=== PATIENT | female | born 1960 | race Caucasian/White ===

== ENCOUNTER 2019-08-22 15:32 | Outpatient (CLI) | payer OTHER, SELFPAY ==
--- NOTE | ~2019-08-22 | MM_ITS ---
EXAMINATION: MM screening lizeth BI w mason HISTORY: Screening mammogram TECHNIQUE: Craniocaudal and mediolateral oblique 3-D tomosynthesis images were obtained and synthetic 2-D images were generated. CAD analysis was submitted and interpreted. COMPARISON: 06/13/2018, 06/09/2017, 05/13/2016 bilateral digital screening mammogram examinations BREAST PARENCHYMAL COMPOSITION: The breasts are almost entirely fatty. FINDINGS: There is no evidence of suspicious mass, calcification, or architectural distortion to sugg est malignancy in either breast. There has been no suspicious interval change. IMPRESSION: 1. No mammographic evidence of malignancy. 2. Recommend routine screening mammography in one year. BI-RADS Category 1: Negative Reviewed, dictated and finalized at location A. ACT LENS EDGE BUFFER
== END 2019-08-22 15:33 | disposition home or self-care (01) ==
LOC: ANHIMG 15:40
PROVIDERS: PCP Family Medicine; Visit Provider Family Medicine
DX: Z12.31 Encounter for screening mammogram for malignant neoplasm of breast (principal)
CPT/HCPCS: 77063; 77067

== ENCOUNTER 2020-05-25 10:38 | Outpatient (CLI) | payer OTHER, SELFPAY ==
--- NOTE | ~2020-05-25 | US_ITS ---
EXAMINATION: US carotid duplex BI DATE: 05/25/2020 12:01 INDICATION: Hypertension. TECHNIQUE: Grayscale, color Doppler, and pulsed Doppler images of the cervical carotid arteries were obtained. The degree of vessel stenosis is placed in one of the following categories: normal, <50%, 5 0-69%, >=70% but less than near-occlusion, near-occlusion, or total occlusion. Note that percent sten osis relative to normal distal artery lumen diameter is indirectly measured from velocity measurement s as described by Fernando, et al. Radiology 2003; [id number]:340-346. COMPARISON: None. FINDINGS: RIGHT: The right common carotid artery (CCA) peak systolic velocity (PSV) is 104 cm/s. The right internal ca rotid artery (ICA) PSV is 61 cm/s. The right ICA end-diastolic velocity (EDV) is 30 cm/s. The right I CA/CCA PSV ratio is 0.6. Grayscale and color Doppler images yield an estimate of <50% diameter reduct ion from plaque in the ICA. There is antegrade flow in the right vertebral artery. LEFT: The left CCA PSV is 75 cm/s. The left ICA PSV is 88 cm/s. The left ICA EDV is 33 cm/s. The left ICA/C CA PSV ratio is 1.2. Grayscale and color Doppler images yield an estimate of <50% diameter reduction from plaque in the ICA. There is antegrade flow in the left vertebral artery. IMPRESSION: 1. <50% stenosis in the right internal carotid artery. 2. <50% stenosis in the left internal carotid artery. Reviewed, dictated and finalized at location A. R AND FIRE TECHNICIAN
== END 2020-05-25 10:39 | disposition home or self-care (01) ==
PROVIDERS: PCP Family Medicine; Visit Provider Nurse Practitioner Family
DX: R42 Dizziness and giddiness (principal); I10 Essential (primary) hypertension; I65.23 Occlusion and stenosis of bilateral carotid arteries
CPT/HCPCS: 93880

== ENCOUNTER 2021-03-26 15:11 | Outpatient (CLI) | payer OTHER, SELFPAY ==
--- NOTE | ~2021-03-26 | MM_ITS ---
EXAMINATION: MM screening lizeth BI w mason HISTORY: Screening TECHNIQUE: Craniocaudal and mediolateral oblique 3-D tomosynthesis images were obtained and synthetic 2-D images were generated. CAD analysis was submitted and interpreted. COMPARISON: Comparison to multiple prior studies sequentially, with oldest reviewed study dated 03/27. BREAST PARENCHYMAL COMPOSITION: There are scattered areas of fibroglandular density. FINDINGS: There is no evidence of suspicious mass, calcification, or architectural distortion to sugg est malignancy in either breast. There has been no suspicious interval change. IMPRESSION: 1. No mammographic evidence of malignancy. 2. Recommend routine screening mammography in one year. BI-RADS Category 1: Negative Reviewed, dictated and finalized at location A.
== END 2021-03-26 15:12 | disposition home or self-care (01) ==
LOC: ANHIMG 15:14
PROVIDERS: PCP Family Medicine; Visit Provider Family Medicine
DX: Z12.31 Encounter for screening mammogram for malignant neoplasm of breast (principal)
CPT/HCPCS: 77063; 77067

== ENCOUNTER 2022-07-27 07:58 | Outpatient (CLI) | payer OTHER, SELFPAY ==
--- NOTE | ~2022-07-27 | MM_ITS ---
EXAMINATION: MM screening lizeth BI w mason HISTORY: Screening mammogram TECHNIQUE: Craniocaudal and mediolateral oblique 3-D tomosynthesis images were obtained and synthetic 2-D images were generated. CAD analysis was submitted and interpreted. COMPARISON: 03/26/2021, 08/22/2019, 06/13/2018 bilateral screening mammogram examinations BREAST PARENCHYMAL COMPOSITION: The breasts are almost entirely fatty. FINDINGS: There is no evidence of suspicious mass, calcification, or architectural distortion to sugg est malignancy in either breast. There has been no suspicious interval change. IMPRESSION: 1. No mammographic evidence of malignancy. 2. Recommend routine screening mammography in one year. BI-RADS Category 1: Negative Reviewed, dictated and finalized at location B. NOTCHER
== END 2022-07-27 07:59 | disposition home or self-care (01) ==
LOC: ANHIMG 08:01
PROVIDERS: PCP Family Medicine; Visit Provider Family Medicine
DX: Z12.31 Encounter for screening mammogram for malignant neoplasm of breast (principal)
CPT/HCPCS: 77063; 77067

== ENCOUNTER 2023-10-17 08:43 | Outpatient (CLI) | payer OTHER, SELFPAY ==
--- NOTE | ~2023-10-17 | MM_ITS ---
EXAMINATION: MM screening lizeth BI w mason HISTORY: Screening mammogram TECHNIQUE: Craniocaudal and mediolateral oblique 3-D tomosynthesis images were obtained and synthetic 2-D images were generated. CAD analysis was submitted and interpreted. COMPARISON: 07/27/2022, 03/26/2021 bilateral screening mammogram examinations BREAST PARENCHYMAL COMPOSITION: The breasts are almost entirely fatty. FINDINGS: There is a 3.1 x 3.4 mm mass anteriorly in the lower central left breast at 6:00. Diagnosti c left mammogram and left breast ultrasound examination are recommended. Otherwise there is no evidence of suspicious mass, calcification, or architectural distortion to sugg est malignancy in either breast. There has been no other suspicious interval change. IMPRESSION: 1. Suspicious dense 3 x 3.4 mm mass in the anterior left breast, 6:00 2. Diagnostic left mammogram and targeted left breast ultrasound examination are recommended. BI-RADS Category 0: Incomplete: Needs additional imaging evaluation. Reviewed, dictated and finalized at location A. IMPRESSION: 1. Suspicious dense 3 x 3.4 mm mass in the anterior left breast, 6:00 2. Diagnostic left mammogram and targeted left breast ultrasound examination ar e recommended. BI-RADS Category 0: Incomplete: Needs additional imaging evaluation.
== END 2023-10-17 08:44 | disposition home or self-care (01) ==
PROVIDERS: PCP Family Medicine; Visit Provider Physician Assistant
DX: Z12.31 Encounter for screening mammogram for malignant neoplasm of breast (principal); R92.8 Other abnormal and inconclusive findings on diagnostic imaging of breast
CPT/HCPCS: 77063; 77067

== ENCOUNTER 2023-11-13 10:42 | Outpatient (CLI) | payer OTHER, SELFPAY ==
--- NOTE | ~2023-11-13 | MMUS_ITS ---
EXAMINATION: MM diagnostic lizeth LT w mason, US breast LT limited HISTORY: Suspicious 3 x 3.4 mm mass in anterior left breast at 6:00 noted on October 17, 2023 screening mammogram TECHNIQUE: Additional 3-D tomosynthesis images of the left breast were performed and synthetic 2-D im ages were generated. CAD analysis was submitted and interpreted. High resolution left subareolar miguel st ultrasound was performed. COMPARISON: Serial images dating back to 08/22/2019 FINDINGS: MAMMOGRAPHIC FINDINGS: An approximately 2.5 x 1.9 mm circumscribed opacity is noted in the inferior subareolar area of the l eft breast anteriorly. ULTRASOUND: In the 6:00 subareolar area there is an approximately 1.7 x 3.2 x 2.1 mm oval hypoechoic area without internal vascularity or posterior shadowing. Six-month follow-up diagnostic left mammogram and ultrasound examination are recommended. IMPRESSION: 1. Probable inferior subareolar benign finding 2. Six-month diagnostic left mammogram and breast ultrasound follow-up are recommended BI-RADS category 3, probably benign findings. Reviewed, dictated and finalized at location B. IMPRESSION: 1. Probable inferior subareolar benign finding 2. Six-month diagnostic left mammogram and breast ultrasound follow-up are ben mmended BI-RADS category 3, probably benign findings.
== END 2023-11-13 10:43 | disposition home or self-care (01) ==
LOC: ANHIMG 10:46
PROVIDERS: PCP Family Medicine; Visit Provider Physician Assistant
DX: R92.8 Other abnormal and inconclusive findings on diagnostic imaging of breast (principal)
CPT/HCPCS: 76642; 77061; 77065; G0279

== ENCOUNTER 2023-11-21 14:31 | Outpatient (CLI) | payer OTHER, SELFPAY ==
--- NOTE | ~2023-11-21 | CT_ITS ---
EXAMINATION: CT lung screening DATE: 11/21/2023 14:49 INDICATION: Z87.891 - Personal history of nicotine dependence TECHNIQUE: Computed tomography (CT) of the chest was performed without intravenous contrast. Addition al 3D reconstructions utilizing coronal maximum intensity projection (MIP) were performed. Automated exposure control and iterative reconstruction technique were employed. The dose-length product was 12 2.99 mGy-cm. COMPARISON: 04/06/2018 FINDINGS: Mild to moderate apical and paraseptal predominant emphysema. Decrease in size of a small region of c onsolidation likely chronic atelectasis/scarring at the medial right middle lobe. No significant keyes ge in regions of tree-in-bud opacities in the right middle lobe and anterior segment of the right upp er lobe. Interval improvement in now minimal tree-in-bud opacities in the right lower lobe. Slight in crease in size of a previously 5 x 4 mm, currently 8 x 6 mm left lower lobe nodule. A couple small ca lcified pulmonary nodules at the left and right apices of lungs consistent with old granulomatous dis ease. No new or enlarging pulmonary nodules, pneumonia, pulmonary edema or pleural effusion. Heart si ze is normal. No pericardial effusion. Thoracic aorta is normal in caliber. No pathologically enlarge d thoracic lymphadenopathy. Visualized upper abdomen is unremarkable. Again seen is a mild thoracic k yphosis with mild to moderate spondylosis and chronic minimal to mild anterior wedging of multiple mi d and lower thoracic vertebral bodies. IMPRESSION: 1. Lung-RADS category 4A: (Suspicious, 5-15% chance of malignancy) 3 month follow-up with low-dose est CT. Given the minimal growth relative to the nearly 6 year interval between studies would conside r increasing the CT follow-up interval to 6 months. Reviewed, dictated and finalized at location B. IMPRESSION: 1. Lung-RADS category 4A: (Suspicious, 5-15% chance of malignancy) 3 month foll ow-up with low-dose chest CT. Given the minimal growth relative to the nearly 6 year interval between studies would consider increasing the CT follow-up inter nevaeh to 6 months.
== END 2023-11-21 14:32 | disposition home or self-care (01) ==
PROVIDERS: PCP Family Medicine; Visit Provider Family Medicine
DX: Z12.2 Encounter for screening for malignant neoplasm of respiratory organs (principal); Z87.891 Personal history of nicotine dependence
CPT/HCPCS: 71271

== ENCOUNTER 2024-02-29 12:24 | Outpatient (CLI) | payer OTHER, SELFPAY ==
--- NOTE | ~2024-02-29 | CT_ITS ---
EXAMINATION: CT diagnostic chest wo con DATE: 02/29/2024 12:54 INDICATION: pulmonary nodule TECHNIQUE: Computed tomography (CT) of the chest was performed without intravenous contrast. Addition al 3D reconstructions utilizing coronal maximum intensity projection (MIP) were performed. Automated exposure control and iterative reconstruction technique were employed. The dose-length product was 81 .13 mGy-cm. COMPARISON: 11/21/2023 and 04/06/2018 FINDINGS: Mild to moderate upper paraseptal predominant emphysema in the upper lungs. No significant interval c hange in a 9 x 6 mm left lower lobe nodule. There are multiple additional tiny centrilobular nodules clustered in the right upper lobe and to lesser degree in the right middle the lower lobes with tree- in-bud pattern consistent with endobronchial spread of disease and likely infectious in etiology. Per ipheral atelectasis at the anteromedial margin of the right middle lobe. No pulmonary edema or pleura l effusion. Heart size is normal. Atherosclerotic coronary artery calcification. No pericardial effus ion. Thoracic aorta is normal in caliber. No pathologically enlarged thoracic lymphadenopathy. There are a few diverticula of the splenic flexure colon without adjacent compression to suggest diverticul itis. Chronic appearing mild anterior wedging of a few mid to lower thoracic vertebral bodies with mi ld spondylosis. IMPRESSION: 1. No significant interval change in a 9 x 6 mm left lower lobe pulmonary nodule which had demonstrat ed mild growth when compared with an earlier study from 6 years prior. Would recommend additional six -month follow-up low-dose noncontrast head CT. 2. Mild to moderate emphysema with stable appearance of tree-in-bud opacities in the right upper, mid dle and lower lobes likely sequela of chronic pneumonia. Reviewed, dictated and finalized at location A. IMPRESSION: 1. No significant interval change in a 9 x 6 mm left lower lobe pulmonary nodul e which had demonstrated mild growth when compared with an earlier study from 6 years prior. Would recommend additional six-month follow-up low-dose noncontra st head CT. 2. Mild to moderate emphysema with stable appearance of tree-in-bud opacities i n the right upper, middle and lower lobes likely sequela of chronic pneumonia.
== END 2024-02-29 12:25 | disposition home or self-care (01) ==
PROVIDERS: PCP Family Medicine; Visit Provider Physician Assistant
DX: R91.1 Solitary pulmonary nodule (principal); Z72.0 Tobacco use; J43.9 Emphysema, unspecified
CPT/HCPCS: 71250

== ENCOUNTER 2024-05-16 12:39 | Outpatient (CLI) | payer OTHER, SELFPAY ==
--- NOTE | ~2024-05-16 | MMUS_ITS ---
EXAMINATION: MM diagnostic lizeth LT w mason, US breast LT limited HISTORY: Follow-up left periareolar asymmetries TECHNIQUE: Additional 3-D tomosynthesis images of the left breast were performed and synthetic 2-D im ages were generated. CAD analysis was submitted and interpreted. High resolution Limited left breast ultrasound was performed. COMPARISON: 11/13/2023 BREAST PARENCHYMAL COMPOSITION: Not dense: There are scattered areas of fibroglandular density. FINDINGS: MAMMOGRAPHIC FINDINGS: There is a small left periareolar mass. There are no suspicious calcifications or architectural disto rtion. ULTRASOUND: Limited left breast ultrasound: At 6:00 in the subareolar location there is an oval hypoechoic mass m easuring 3 mm with parallel orientation, no significant posterior features and no internal vascularit y, likely benign. IMPRESSION: 1. Probable benign left breast mass at 6:00 in the subareolar location measuring 3 mm. 2. Recommend 6 month follow-up Limited left breast ultrasound and diagnostic left mammogram BI-RADS category 3, probably benign findings. Reviewed, dictated and finalized at location B. E OPERATOR IMPRESSION: 1. Probable benign left breast mass at 6:00 in the subareolar location measurin g 3 mm. 2. Recommend 6 month follow-up Limited left breast ultrasound and diagnostic le ft mammogram BI-RADS category 3, probably benign findings.
== END 2024-05-16 12:40 | disposition home or self-care (01) ==
PROVIDERS: PCP Family Medicine; Visit Provider Physician Assistant
DX: R92.8 Other abnormal and inconclusive findings on diagnostic imaging of breast (principal)
CPT/HCPCS: 76642; 77061; 77065; G0279

== ENCOUNTER 2024-08-23 08:14 | Outpatient (CLI) | payer OTHER, SELFPAY ==
--- NOTE | ~2024-08-23 | CT_ITS ---
EXAMINATION:CT diagnostic chest wo con DATE: 08/23/2024 09:37 INDICATION: Solitary pulmonary nodule. TECHNIQUE: Computed tomography (CT) of the chest was performed without intravenous contrast. Automate d exposure control and iterative reconstruction technique were employed. The dose-length product (DLP ) was 152.07 mGy-cm. COMPARISON: Chest CT 02/29/2024 FINDINGS: There is moderate emphysema. There is mild scarring at the lung apices. There are chronic t ree-in-bud opacities in right upper lobe and right middle lobe, likely chronic infection. There is a 9 mm nodule in left lower lobe. There are scattered nodules in the lungs measuring up to 3 mm, likely benign. No pleural effusion. The heart size is normal. There are coronary artery calcifications. No pericardial effusion. There is mild thoracic spondylosis. There is mild chronic anterior wedging of m ultiple vertebral bodies. IMPRESSION: 1. 9 mm pulmonary nodule, stable from 11/21/2023, likely benign. Noncontrast low-dose chest CT is ben mmended in one year. Reviewed, dictated and finalized at location A. ICULUM AND INSTRUCTION SPECIALIST IMPRESSION: 1. 9 mm pulmonary nodule, stable from 11/21/2023, likely benign. Noncontrast low -dose chest CT is recommended in one year.
--- OUTSIDE RECORDS SUMMARY | 2024-08-23 08:24 | XMS_ITS | Clinical Summary ---
Author Organization [facility] Address [address] [place] [address] Care Team Providers Care Handling Tech Name Role Phone Jayden Varma MD Primary Care Provider [phone] Allergies No known active allergies Medications levothyroxine 100 MCG tablet Take 100 mcg by mouth every morning. Active BENAZEPRIL HCL OR Active losartan 100 MG tablet Take 100 mg by mouth daily. Active Family History Medical History Relation Comments Heart Disease Brother Hypertension Brother Heart Disease Father Hypertension Father Heart Disease Mother Relation Status Comments Brother Father Mother Social History Tobacco Use Types Packs/Day Years Used Date Smoking Tobacco: Former Smokeless Tobacco: Former Alcohol Use Standard Drinks/Week Comments No 0 (1 standard drink = 0.6 oz pur e alcohol) Comments Unknown Sex and Gender Information Value Date Recorded Sex Assigned at Not on file Legal Sex Female 7:04 PM CDT Gender Identity Not on file Sexual Orientation Not on file Last Filed Vital Signs Vital Sign Reading Time Taken Comments Blood Pressure 142/88 09/18/2017 11:02 AM CDT Pulse 77 09/18/2017 11:02 AM CDT Temperature 36.4 C (97.6 F) 09/18/2017 11:02 AM CDT Respiratory Rate 18 09/18/2017 11:02 AM CDT Oxygen Saturation 98% 09/18/2017 11:02 AM CDT Inhaled Oxygen Concentration - - Weight 77.1 kg (170 lb) 09/18/2017 11:02 AM CDT Height 165.1 cm (5' 5 ) 09/18/2017 11:02 AM CDT Body Mass Index 28.29 09/18/2017 11:02 AM CDT Plan of Treatment Health Maintenance Due Date Last Done Comments Colorectal Cancer Screening Colonoscopy (10 Years) 1961 Annual Physical 1964 Hepatitis C 09/10/1979 DTaP, Tdap and Td Vaccines ( 1 - Tdap) 1980 Mammogram Screening 2001 Zoster Vaccines (1 of 2) 09/10/2011 COVID-19 Vaccine ( - 2023-2 5 season) 2024 Influenza Adult (#1) 2024 RSV Immunization or 60+ Years (1 - 1-dose 75+ series) 2036 Meningococcal B Vaccine Aged Out No l onger eligible based on patient's age to complete this topic Meningococcal Vaccine Aged Out No isis lynne eligible based on patient's age to complete this topic Pneumococcal Vaccine: Pediat rics (0 to 5 Years) and At-Risk Patients (6 to 64 Years) Aged Out No longer eligible b ased on patient's age to complete this topic RSV Immunizations Under 20 Months Aged Out No longer eligible based on patient's age to complete this topic Insurance [employer] Care Teams Handling Tech Relationship Specialty Start Date End Date Jayden Varma MD [id number] [place] [address] PCP - General FAMILY PRACTICE 09/18/17
--- NOTE | 2024-08-23 16:59 | WPDSIXMINUTE ---
Six Minute Walk Procedure Procedure Performed Pulmonary Stress Test (6 min walk) Six Minute Walk Six Minute Walk: This is a 6 minute walk test. The test was performed and interpreted in accordance with the 2014 ERS/ATS task force guidelines. Findings: The patient's resting room air oxygen saturation measured by pulse oximetry was 98%, the heart rate was 72 bpm, and the modified Tanika dyspnea score was 1. Patient ambulated for 366 meters and oxygen saturation remained 96 to 100%. At the end of the study the heart rate was 103 bpm and the modified Tanika dyspnea score was 2. The patient did not qualify for supplemental oxygen at rest or with ambulation. There are no prior studies for comparison.
--- NOTE | 2024-08-23 16:59 | P.PCNPFT_ITS ---
PFT Procedure Performed PFT Procedure Performed Spirometry with Pre/Post Bronchodilator Plethysmography (Lung Vol) Diffusing Cap (DLCO) Flow Vol Loop PFT Interpretation This is a pulmonary function test with pre and post-bronchodilator spirometry, plethysmography and diffusing capacity. The test was performed and results interpreted in accordance with the 2019 and 2005 ATS/ERS Task Force guidelines respectively using the Global Lung Function Initiative-2012 reference equations. Patient demonstrated good effort and cooperation. Reproducibility criteria were met. The quality of the pre bronchodilator spirometry maneuver was Grade A and post bronchodilator spirometry maneuver was Grade A. Findings: Spirometry: There is decreased maximal expiratory airflow at all lung volumes with concave expiratory flow tracing. The contour the inspiratory flow tracing is normal. The pre bronchodilator FVC is 2.75 L, 86% predicted. The pre bronchodilator FEV1 is 1.00 L, 40% predicted. The pre bronchodilator FEV1: FVC ratio is 36%. The post bronchodilator FVC is 3.17 L, representing a 15% increase. The post bronchodilator FEV1 is 1.43 L, representing a 43% increase. The post bronchodilator FEV1: FVC ratio is 45%. Plethysmography: The total lung capacity is 6.97 L, 134% predicted. The functional residual capacity is 4.92 L, 167% predicted. The residual volume is 4.02 L, 194% predicted. The residual volume: Total lung capacity ratio is 58%. Diffusing capacity: The diffusing capacity unadjusted for hemoglobin and carboxyhemoglobin is 10.1, 47% predicted. The diffusing capacity adjusted for alveolar volume is 3.37, 77% predicted. In comparison to previous pulmonary function testing on 12/23/2014, the post bronchodilator FVC is unchanged from 3.33 L to 3.17 L. The post bronchodilator FEV1 is decreased from 1.89 L to 1.43 L. The total lung capacity is unchanged from 7.26 L to 6.97 L. The functional residual capacity is unchanged from 5.01 L to 4.92 L. The residual volume is unchanged from 4.05 L to 4.02 L. The residual volume: Total lung capacity ratio is unchanged from 56% to 58%. The diffusing capacity unadjusted for hemoglobin and carboxyhemoglobin is decreased from 15.8 to 10.1. The diffusing capacity adjusted for alveolar volume is decreased from 3.99 to 3.37. Impression: There is a moderate obstructive abnormality. There is significant improvement after inhaling a single dose of albuterol. The increase in residual volume to total lung volume ratio is consistent with hyperinflation from an obstructive abnormality. The diffusing capacity unadjusted for hemoglobin and carboxyhemoglobin is moderately decreased and normalizes when adjusted for alveo lar volume. In comparison to previous pulmonary function testing on 12/23/2014 there has been a greater than anticipated time dependent increase in the FEV1 and the diffusing capacity. There has been no significant change in the FVC, total lung capacity, functional residual capacity, residual volume or the residual volume: Total lung capacity ratio. Clinical correlation is recommended.
== END 2024-08-23 08:15 | disposition home or self-care (01) ==
PROVIDERS: PCP Family Medicine; Visit Provider Internal Medicine Pulmonary Disease
DX: R91.1 Solitary pulmonary nodule (principal); Z87.891 Personal history of nicotine dependence; J44.9 Chronic obstructive pulmonary disease, unspecified; R94.2 Abnormal results of pulmonary function studies
CPT/HCPCS: 71250; 94060; 94618; 94726; 94729

== ENCOUNTER 2024-10-30 10:46 | Outpatient (CLI) | payer OTHER, SELFPAY ==
--- NOTE | ~2024-10-30 | MMUS_ITS ---
EXAMINATION: MM diagnostic lizeth BI w mason, US breast LT limited HISTORY: Follow-up left breast mass in the subareolar location TECHNIQUE: Additional 3-D tomosynthesis images of the left breast were performed and synthetic 2-D im ages were generated. CAD analysis was submitted and interpreted. High resolution Limited left breast ultrasound was performed. COMPARISON: Comparison to multiple prior studies sequentially, with oldest reviewed study dated 08/22. BREAST PARENCHYMAL COMPOSITION: Not Dense: The breasts are almost entirely fatty. FINDINGS: MAMMOGRAPHIC FINDINGS: There is a small persistent subareolar mass of the left breast which is not significantly changed com pared with prior study. No suspicious calcifications or architectural distortion. ULTRASOUND: Limited left breast ultrasound: At 6:00 in the subareolar location of the left there is a 3 mm mass w hich appears to have a congenital hilum and internal vascularity, most likely benign intramammary lym ph node. No other masses are identified. This corresponds to the mammographic finding. IMPRESSION: 1. Probable benign intramammary lymph node of the left breast in the subareolar location. 2. Recommend 6 month follow-up diagnostic bilateral mammogram and Limited left breast ultrasound BI-RADS category 3, probably benign findings. Reviewed, dictated and finalized at location A. IMPRESSION: 1. Probable benign intramammary lymph node of the left breast in the subareolar location. 2. Recommend 6 month follow-up diagnostic bilateral mammogram and Limited left breast ultrasound BI-RADS category 3, probably benign findings.
--- OUTSIDE RECORDS SUMMARY | 2024-10-30 12:32 | XMS_ITS | Clinical Summary ---
Author Organization [facility] Address [address] [place] [id number] Care Team Providers Care Proof Machine Operator Supervisor Name Role Phone Jayden Varma MD Primary Care Provider [phone] Allergies No known active allergies Medications levothyroxine [...] 1 - Tdap) 1980 Mammogram Screening 2001 Pneumococcal Vaccine: 50+ Ye ars (1 of 1 - PCV) 09/10/2011 Zoster Vaccines (1 of 2) 09/10/2011 COVID-19 Vaccine (1 - 2023-2 5 season) 2024 RSV Immunization or 60+ Years (1 [...] Insurance [employer] Care Teams Proof Machine Operator Supervisor Relationship Specialty Start Date End Date Jayden Varma MD [id number] [facility] [address] [place] [address] PCP - General FAMILY PRACTICE 09/18/17
== END 2024-10-30 10:47 | disposition home or self-care (01) ==
PROVIDERS: PCP Family Medicine; Visit Provider Physician Assistant
DX: R92.8 Other abnormal and inconclusive findings on diagnostic imaging of breast (principal)
CPT/HCPCS: 76642; 77062; 77066; G0279

== ENCOUNTER 2025-02-24 12:55 | Outpatient (CLI) | payer OTHER, SELFPAY ==
--- NOTE | ~2025-02-24 | CT_ITS ---
EXAMINATION: CT diagnostic chest wo con DATE: 02/24/2025 13:20 INDICATION: Solitary pulmonary nodule TECHNIQUE: Computed tomography (CT) of the chest was performed without intravenous contrast. The dose -length product was 99.26 mGy-cm. COMPARISON: 08/23/2024, 11/21/2023 and 04/06/2018 FINDINGS: No enlarged axillary, mediastinal or hilar lymph nodes. Heart is not enlarged. Thoracic aorta is unre markable. Visualized upper abdomen is unremarkable. Tracheobronchial tree is patent. Mild bronchiecta sis in the right middle lobe, unchanged. Grossly stable biapical scarring. Mild centrilobular emphysema in the upper lobes, unchanged. Grossly stable tree-in-bud opacities in the right upper lobe and right middle lobe. Stable 9 mm pulmonary nodule in the left lower lobe. Osseous structures are similar to the prior study. IMPRESSION: 1. Stable 9 mm pulmonary nodule in the left lower lobe dating back to 11/21/2023. A follow up chest CT in 3 months or PET/CT is recommended. 2. Grossly stable tree-in-bud opacities in the right upper lobe and right middle lobe dating back to 11/21/2023. Reviewed, dictated and finalized at location A. IMPRESSION: 1. Stable 9 mm pulmonary nodule in the left lower lobe dating back to 11/21/2023 . A follow up chest CT in 3 months or PET/CT is recommended. 2. Grossly stable tree-in-bud opacities in the right upper lobe and right middl e lobe dating back to 11/21/2023.
== END 2025-02-24 12:56 | disposition home or self-care (01) ==
PROVIDERS: PCP Family Medicine; Visit Provider Nurse Practitioner Family
DX: R91.1 Solitary pulmonary nodule (principal)
CPT/HCPCS: 71250

== ENCOUNTER 2025-04-17 10:24 | Outpatient (CLI) | payer OTHER, SELFPAY ==
--- NOTE | ~2025-04-17 | PE_ITS ---
EXAMINATION: PET skull to mid thigh DATE: 04/17/2025 12:43 INDICATION: Solitary pulmonary nodule. TECHNIQUE: Blood glucose level was 82 mg/dL. 9.551 mCi of 18-fluorodeoxyglucose (18-FDG) was administered i.v. Low dose computed tomography (CT) images were acquired from the base of the brain to the proximal thighs for attenuation correction and anatomic localization. Automated exposure control was employed. Dose-length product (DLP) was 903 mGy-cm. Positron emission tomography (PET) images were acquired in the same distribution. COMPARISON: Chest CT 02/24/2025, 11/21/2023 FINDINGS: Head/neck: There are no pathologically enlarged lymph nodes. There are changes of left-sided craniotomy. There is chronic encephalomalacia in the brain on the left. Chest: There is moderate emphysema. There is mild atelectasis bilaterally. There is a 9 mm nodule without increased activity in left lung lower lobe that measured 8 mm on 11/21/2023 and 5 mm on 03/29/2018. No pleural effusion. The heart size is normal. No pericardial effusion. There is a small sliding hiatal hernia. Abdomen/pelvis/proximal thighs: The liver, gallbladder, spleen, pancreas, adrenal glands, and right kidney are normal. There is cortical thinning of left kidney. There is diverticulosis of the colon without evidence of diverticulitis. There are no dilated loops of bowel. The appendix is not visualized. There are no pathologically enlarged lymph nodes. There is no free intraperitoneal fluid. There is no osseous malignancy. IMPRESSION: 1. 9 mm left lower lobe pulmonary nodule without increased activity, likely benign. 2. Moderate emphysema. Reviewed, dictated and finalized at location E. IMPRESSION: 1. 9 mm left lower lobe pulmonary nodule without increased activity, likely lauren ign. 2. Moderate emphysema.
== END 2025-04-17 10:25 | disposition home or self-care (01) ==
PROVIDERS: PCP Family Medicine; Visit Provider Physician Assistant
DX: R91.1 Solitary pulmonary nodule (principal); J43.9 Emphysema, unspecified
CPT/HCPCS: 78815; A9552